=== PATIENT | male | born 1955 | race Caucasian/White ===

== ENCOUNTER 2023-07-02 06:03 | Emergency (ER) | payer MEDICARE ==
[~2023-07-02] VITALS: Ht 177.8 cm; Wt 88.5 kg
[2023-07-02] MEDS ORDERED: ONDANSETRON 4MG INJ ONE (06:19)
[2023-07-02] MEDS ORDERED: MORPHINE 4 MG SYG ONE (06:20)
[2023-07-02] MEDS ORDERED: MORPHINE 4 MG SYG IVP ONE ×2 (06:30→07:30)
[2023-07-02] MEDS ORDERED: ONDANSETRON 4MG INJ IVP ONE (06:30)
[2023-07-02 06:35] LABS: BASOPHILS # (AUTO) 0.04 K/uL (0.00-0.20); BASOPHILS % (AUTO) 0.6 % (0.0-5.0); EOSINOPHILS # (AUTO) 0.26 K/uL (0.00-0.70); EOSINOPHILS % (AUTO) 3.7 % (0.0-8.0); HEMATOCRIT 44.3 % (42-54); IMMATURE GRANULOCYTE ABSOLUTE 0.02 K/uL (0-1); LYMPHOCYTES # (AUTO) 1.9 K/uL (1.0-4.8); MEAN CORPUSCULAR HEMOGLOBIN 30.1 pg (27.0-33.0); MEAN CORPUSCULAR VOLUME 91.3 fL (79-99); MONOCYTES # (AUTO) 0.9 K/uL (0.1-1.0); MONOCYTES % (AUTO) 12.2 % (3.0-13.0); NEUTROPHILS % (AUTO) 56.2 % (40.0-77.0); PLATELET COUNT (AUTO) 158 K/uL (130-400); RED BLOOD CELL COUNT(AUTO) 4.85 MIL/uL (4.50-6.20); RED CELL DISTRIBUTION WIDTH 12.8 % (11.0-15.5); WHITE BLOOD COUNT (AUTO) 7.1 K/uL (4.8-10.8)
[2023-07-02 06:41] LABS: POTASSIUM 4.4 mmol/L (3.5-5.1)
[2023-07-02 06:53] LABS: INR < 0.93 (0.85-1.15); PROTHROMBIN TIME 10.3 SEC (9.6-11.6)
[2023-07-02 06:55] LABS: PARTIAL THROMBOPLASTIN TIME 29.3 SEC (26.3-35.5)
[2023-07-02 07:11] LABS: D-DIMER 466 ng/mL (0-500)
[2023-07-02] MEDS ORDERED: FENTANYL 12 MCG/HR PATCH TD ONE (07:30)
[2023-07-02] MEDS ORDERED: DEXAMETHASONE SOD PHOSPHATE 4 MG/ML 1ML VIAL IVP ONE (07:30)
[2023-07-02 08:01] VITALS: BP 170/83; PULSE 70; RESP 18; O2SAT 96
[2023-07-03] MEDS ORDERED: MELO-106 PO (21:38)
[2023-07-03] MEDS ORDERED: HYDR50CA50 PO (21:38)
[2023-07-03] MEDS ORDERED: CYCL10TA16 PO (21:38)
[2023-07-04] MEDS ORDERED: HYDR25 PO (11:19)
[2023-07-04] MEDS ORDERED: ATOR20TA65 PO (11:41)
[2023-07-04] MEDS ORDERED: METO25TA6 PO (11:41)
[2023-07-05] MEDS ORDERED: METH-811 PO (00:16)
== END 2023-07-02 08:25 | disposition home or self-care (01) ==
LOC: EDH 06:03
DX: M54.16 Radiculopathy, lumbar region (principal); N28.9 Disorder of kidney and ureter, unspecified; I10 Essential (primary) hypertension; Z79.1 Long term (current) use of non-steroidal anti-inflammatories (NSAID); Z79.899 Other long term (current) drug therapy; Z88.6 Allergy status to analgesic agent
CPT/HCPCS: 99285; 96374; 72131; 96375; 80048; 85025; 85378; 85610; 85730; 36415; 96376; J1100; J2405; J2270 ×2